=== PATIENT | female | born 1955 | race Caucasian/White ===

== ENCOUNTER → 2018-02-04 12:52 | Outpatient (CLI) | payer OTHER, SELFPAY ==
[2018-02-04 14:11] LABS: Absolute Neutrophil Count 2.2 X10^3/uL (2.0-7.7); Basophil# 0.03 X10^3/uL; Basophil% 0.7 % (0-1); Eosinophils% 2.3 % (0-5); Hematocrit 38.9 % (37-47); Hemoglobin 12.8 g/dl (12.0-15.0); Lymphocyte % 36.4 % (19-41); Mean Corp Hgb Conc 32.9 g/gl (32-36); Mean Corpuscular Hgb 31.8 pg (27.0-32.0); Mean Corpuscular Volume 96.5 fL (81-99); Mean Platelet Vol. 11.8 fl (6.2-12.0); Monocyte# 0.43 X10^3/uL; Monocyte% 9.8 % (0-10); Neutrophil # 2.22 X10^3/uL (2.7-7.7); Neutrophil % 50.6 % (47-70); Platelet Count 171 K/mm3 (150-450); RBC Distribution Width CV 11.6 % (11.6-14.6); RBC Distribution Width SD 40.3 fl (35.1-43.9); Red Blood Count 4.03 M/mm3 (4.2-5.4); White Blood Count 4.4 K/mm3 (4.4-11.0)
[2018-02-04 14:12] LABS: POSITIVE COUNT NO; POSITIVE DIFFERENTIAL NO; POSITIVE MORPHOLOGY NO
[2018-02-04 14:29] LABS: Vitamin D,25 Hydroxy 33.3 ng/mL (29.95-100.01)
[2018-02-04 14:33] LABS: ALB/GLOB Ratio 1.2 RATIO (0.9-2.4); AST(SGOT) 19 U/L (15-37); Alanine Aminotransfer ALT/SGPT 16 U/L (13-56); Albumin, Serum 3.6 g/dL (3.2-5.0); Alkaline Phosphatase 59 U/L (45-117); Anion Gap 5 (5-15); BUN 10 mg/dL (7-18); BUN/Creat Ratio 16.5 RATIO (10-20); Calcium,Total 8.7 mg/dL (8.5-10.1); Chloride 103 mmol/L (98-107); Cholesterol 168 mg/dL (200); Creatinine, Serum 0.61 mg/dL (0.55-1.02); EST Glomerular Filtration Rate 105 mL/min (>60); Est Glom Filt Rate - Afr Amer 128 mL/min (>60); Globulin 3.1 g/dL (2.2-4.2); Glucose 83 mg/dL (74-106); High Density Lipoprotein 72 mg/dL; Potassium 4.3 mmol/L (3.5-5.1); Protein, Total 6.7 g/dL (6.4-8.2); Sodium Level 137 mmol/L (136-145); Thyroid Stim Hormone (TSH) 2.31 uIU/mL (0.358-3.74); Triglycerides 110 mg/dL; Very Low Density Lipoprotein 22 mg/dL (5-40)
== END ==
PROVIDERS: Family Provider Family Medicine; PCP Family Medicine; Visit Provider Family Medicine
DX: E78.5 Hyperlipidemia, unspecified (principal); E55.9 Vitamin D deficiency, unspecified; R53.81 Other malaise
CPT/HCPCS: 80053; 80061; 82306; 84443; 85025

== ENCOUNTER → 2018-06-03 12:50 | Outpatient (CLI) | payer OTHER, SELFPAY ==
[2018-06-03] MEDS: Zoledronic Acid 5 MG 100 ML 300 MG IV (13:27)
[2018-06-03 13:44] VITALS: BP 109/66; PULSE 67; RESP 16; TEMP 36.4; O2SAT 100; BMI 18.9
== END ==
PROVIDERS: Family Provider Family Medicine; PCP Family Medicine; Visit Provider Family Medicine
DX: M81.0 Age-related osteoporosis without current pathological fracture (principal)
CPT/HCPCS: 96365; J7050; A4216; J3489

== ENCOUNTER → 2018-07-13 08:03 | Outpatient (CLI) | payer MEDICARE, SELFPAY ==
--- NOTE | 2018-07-13 08:07 | CT_ITS ---
STUDY: CT SOFT TISSUE NECK WITH CONTRAST REASON FOR EXAM: Female, 62 years old. Left neck pain with difficulty swallowing. RADIATION DOSAGE (If Supplied By Facility): CTDIvol = ( 9.48 ) mGy, DLP = ( 264.00 ) mGycm TECHNIQUE: The patient was scanned in a multi-detector CT scanner. High resolution transaxial imaging was performed following intravenous administration of 100 ml of Isovue 300 contrast material. Sagittal and coronal images were reconstructed. Individualized dose optimization techniques were used for this CT. COMPARISON: None. FINDINGS: Normal bilateral parotid glands. Normal bilateral educational guidance counselor spaces. Normal bilateral parapharyngeal spaces. Normal bilateral carotid spaces. Normal bilateral sublingual and submandibular glands and spaces. Normal visualized nasopharynx. Normal retropharyngeal space. Normal perivertebral space. Normal visualized bilateral faucial tonsils. The visualized tongue, tongue base and oropharynx are normal. The visualized cervical lymph nodes (levels I-) are within normal size limits, and maintain normal morphology. There is no demonstrated solid or cystic mass lesion. There is no abnormal contrast enhancement. Normal epiglottis, bilateral vallecula and hypopharynx. The pre-epiglottic and paraglottic adipose spaces are normal. Normal visualized bilateral piriform sinuses, aryepiglottic folds, vocal cords, and arytenoid-cricoid articulations. Normal subglottic trachea. Normal bilateral lobes of the thyroid gland. Normal visualized pulmonary apices. Normal visualized paranasal sinuses. Normal visualized cervical spine. CT/Soft Tissue Neck WITH Contrast IMPRESSION: Normal enhanced CT examination of the soft tissues of the neck. Electronically Signed: Hira Fried MD at 8:43 EDT , Service support ,
[2018-07-13 08:45] LABS: CREATININE FINGERSTICK 0.8 mg/dL (0.55-1.02)
== END ==
PROVIDERS: Family Provider Family Medicine; PCP Family Medicine; Referring Provider Otolaryngology; Visit Provider Otolaryngology
DX: M54.2 Cervicalgia (principal)
CPT/HCPCS: 70491; Q9967

== ENCOUNTER → 2019-06-14 | Outpatient (CLI) | payer MEDICARE, SELFPAY ==
--- NOTE | 2019-06-14 11:21 | BI_ITS ---
MAMMOGRAPHY - BILATERAL SCREENING REASON FOR EXAM: Female, 63 years old. Routine annual screening examination. PERTINENT HISTORY: Non-contributory. TECHNIQUE: Digital bilateral breast moise (3D mammographic acquisition) in the CC and MLO projections. 2-D mediolateral oblique (MLO) and craniocaudad (CC) views of both breasts were obtained. CAD: Full Field Digital Mammography with Computer Added Detection was performed. COMPARISON: Comparison is made with prior study dated July 10, 2017 and May 11, 2016. FINDINGS: Breast Composition: The breasts are heterogeneously dense, which may obscure small masses. There are no dominant masses or suspicious calcifications. Stable appearance of the bilateral axillary lymph nodes. No other significant abnormalities are identified. There has been no significant change since the prior study. BI/SCREEN MAMM (CAD) W/MOISE BILAT IMPRESSION: Stable bilateral screening mammogram. Yearly follow-up mammogram recommended. (A) ASSESSMENT CATEGORY: BIRADS Category 1: Negative. A letter regarding these results will be sent to the patient by the facility within 30 days. Approximately 10% of breast cancers are not detected by mammography. A normal mammogram should not delay biopsy of a clinically suspicious abnormality. [id number] Electronically Signed: Adrian Morales, at 8:56 EDT , Service support ,
--- NOTE | 2019-06-14 11:27 | BD_ITS ---
STUDY: DUAL ENERGY X-RAY ABSORPTIOMETRY / DXA REASON FOR EXAM: Female, 63 years old. Early menopause. Loss of height. TECHNIQUE: Bone Mineral Density (BMD) measurements of lumbar spine and bilateral hips were obtained. COMPARISON: Comparison is made with prior examination dated May 18, 2017. FINDINGS: Lumbar Spine (L1-L4): g/cm2 (0.836) / T-score (-2.7) / Z-score (-1.1) Findings are suggestive of osteoporosis with a high fracture risk. Increased thoracic kyphosis. Left Femur Total: g/cm2 (0.943) / T-score (-0.5) / Z-score (0.7) Left Femoral Neck: g/cm2 (0.910) / T-score (-0.9) / Z-score (0.6) Right Femur Total: g/cm2 (0.943) / T-score (-0.5) / Z-score (0.7) Right Femoral Neck: g/cm2 (0.888) / T-score (-1.1) / Z-score (0.4) The T-Scores on the most recent prior examination were: Lumbar Spine (L1-L4): There has been improvement of bone density since the previous examination. Left Femur Total: which represents an improvement of 2.7%. Right Femur Total: which represents an improvement of 2.1%. BD/Dexa Bone Density Study IMPRESSION: The patient is considered osteoporotic at the level of the lumbar spine as outlined below according to World Simba Organization (WHO) criteria with a high fracture risk. There has been improvement of bone density since the previous examination. Reference Information: The T-score is the number of standard deviations above or below the standard which is normal for young adults at their peak bone mineral density. The World Health Organization (WHO) interprets the T-scores as follows: Above -1 Normal bone density Between -1 and -2.5 Osteopenia Equal to / or below -2.5 Osteoporosis As a practical clinical guideline, osteopenia may be graded as follows: Mild -1 through -1.5 Moderate -1.6 through -2.0 Severe -2.1 through -2.4 The Z-score is the number of standard deviations above or below age-matched controls. A Z-score of less than -1.5 would be considered abnormal. References: 1. NIH Osteoporosis and Related Bone Diseases http://www.osteo.org 2. International Society for Clinical Densitometry http://www.iscd.org 3. National Osteoporosis Foundation http://www.nof.org Electronically Signed: Adrian Morales, at 13:23 EDT , Service support ,
== END | disposition home or self-care (01) ==
PROVIDERS: Family Provider Family Medicine; PCP Family Medicine; Visit Provider Family Medicine
DX: Z78.0 Asymptomatic menopausal state (principal); Z12.31 Encounter for screening mammogram for malignant neoplasm of breast
CPT/HCPCS: 77063; 77067; 77080

== ENCOUNTER → 2019-06-16 | Outpatient (CLI) | payer MEDICARE, SELFPAY ==
[2019-06-16 13:00] VITALS: BP 117/63; PULSE 66; RESP 18; TEMP 36.2; O2SAT 99; BMI 20.2
[2019-06-16] MEDS: Zoledronic Acid 5 MG 100 ML 300 MG IV (13:15)
== END | disposition home or self-care (01) ==
LOC: MEDOUTP 12:54
PROVIDERS: Family Provider Family Medicine; PCP Family Medicine; Referring Provider Family Medicine; Visit Provider Family Medicine
DX: M81.0 Age-related osteoporosis without current pathological fracture (principal)
CPT/HCPCS: 96365; A4216; J3489

== ENCOUNTER → 2019-07-26 | Outpatient (CLI) | payer MEDICARE, SELFPAY ==
[2019-06-16 13:00] VITALS: BMI 20.2
--- NOTE | 2019-07-26 12:23 | RAD_ITS ---
STUDY: X-RAY - LUMBAR SPINE REASON FOR EXAM: Female, 64 years old. Low back pain, left hip pain TECHNIQUE: 5 view(s) of the lumbar spine were obtained. COMPARISON: None FINDINGS: Normal lumbar lordosis. Mild dextroscoliosis. There is a normal alignment of the vertebrae. Normal vertebral bodies and endplates. Normal disc space heights. The soft tissue structures are unremarkable. RAD/L/S Spine Min 4 Views IMPRESSION: Mild dextroscoliosis. Electronically Signed: Cj Obando MD at 15:24 EDT Tel , Service support ,
--- NOTE | 2019-07-26 12:23 | RAD_ITS ---
STUDY: X-RAY - PELVIS AND LEFT HIP REASON FOR EXAM: Female, 64 years old. Left hip pain TECHNIQUE: views of the pelvis and hip. COMPARISON: None. FINDINGS: There is a non-specific bowel gas pattern. Normal visualized soft tissue structures. Normal bilateral iliac wings, sacroiliac joints and visualized sacrum. Normal bilateral superior and inferior pubic rami. Normal pubic symphysis. Normal bilateral ischial tuberosities. Normal visualized femoral head. Normal acetabulum. Normal hip joint. RAD/HIP, UNI W/ Pelvis 2-3 Views IMPRESSION: Normal x-ray examination of the pelvis and hip. Electronically Signed: Cj Obando MD at 15:23 EDT Tel , Service support ,
== END | disposition home or self-care (01) ==
LOC: MTRAD 12:06
PROVIDERS: Family Provider Family Medicine; PCP Family Medicine; Referring Provider Family Medicine; Visit Provider Family Medicine
DX: S39.012A Strain of muscle, fascia and tendon of lower back, initial encounter (principal)
CPT/HCPCS: 72110; 73502

== ENCOUNTER → 2019-08-18 | Outpatient (CLI) | payer MEDICARE, SELFPAY ==
[2019-06-16 13:00] VITALS: BMI 20.2
--- NOTE | 2019-08-18 14:15 | RAD_ITS ---
STUDY: X-RAY STERNUM REASON FOR EXAM: Female, 64 years old. Pain in the sternum. TECHNIQUE: 4 view(s) of the sternum were obtained. COMPARISON: None. FINDINGS: Normal bilateral sternoclavicular articulations. Normal manubrium. Normal sternomanubrial joint. Normal sternal body and xiphoid process. There is no demonstrated fracture of the sternum. Normal visualized anterior ribs. Normal visualized lungs. The soft tissue structures are unremarkable. RAD/Sternum min 2 Views IMPRESSION: Unremarkable x-ray examination of the sternum. Electronically Signed: Clarissa Rader MD at 3:11 EST , Service support ,
== END | disposition home or self-care (01) ==
LOC: MTRAD 14:13
PROVIDERS: Family Provider Family Medicine; PCP Family Medicine; Referring Provider Family Medicine; Visit Provider Family Medicine
DX: R07.89 Other chest pain (principal)
CPT/HCPCS: 71120

== ENCOUNTER → 2020-04-29 | Outpatient (CLI) | payer MEDICARE, SELFPAY ==
[2019-06-16 13:00] VITALS: BMI 20.2
[2020-04-29 17:50] LABS: Absolute Lymphocyte Count 1.53 X10^3/uL (0.83-4.51); Basophil# 0.04 X10^3/uL; Basophil% 0.8 % (0-1); Eosinophil# 0.09 X10^3/uL; Eosinophils% 1.8 % (0-5); Hematocrit 40.4 % (37-47); Hemoglobin 12.6 g/dL (12.0-15.0); Lymphocyte # 1.53 X10^3/ul (4.0); Lymphocyte % 30.5 % (19-41); Mean Corp Hgb Conc 31.2 g/dL (32-36); Mean Corpuscular Hgb 31.1 pg (27.0-32.0); Mean Corpuscular Volume 99.8 fL (81-99); Mean Platelet Vol. 12.3 fl (6.2-12.0); NRBC Flagged by Analyzer 0 % (0-5); Neutrophil # 2.95 X10^3/uL (2.7-7.7); Neutrophil % 58.7 % (47-70); Platelet Count 169 K/mm3 (150-450); RBC Distribution Width CV 12.2 % (11.6-14.6); RBC Distribution Width SD 44.8 fl (35.1-43.9); Red Blood Count 4.05 M/mm3 (4.2-5.4)
[2020-04-29 18:10] LABS: Erythrocyte Sedimentation Rate 4 mm/hr (0-30)
[2020-04-29 18:26] LABS: ALB/GLOB Ratio 1.2 RATIO (0.9-2.4); AST(SGOT) 17 U/L (15-37); Alanine Aminotransfer ALT/SGPT 15 U/L (13-56); Albumin, Serum 3.7 g/dL (3.2-5.0); Alkaline Phosphatase 57 U/L (45-117); Anion Gap 4 (5-15); BUN 10 mg/dL (7-18); BUN/Creat Ratio 16.3 RATIO (10-20); Calcium,Total 8.6 mg/dL (8.5-10.1); Chloride 105 mmol/L (98-107); Creatinine, Serum 0.61 mg/dL (0.55-1.02); EST Glomerular Filtration Rate 104 mL/min (>60); Est Glom Filt Rate - Afr Amer 125 mL/min (>60); Globulin 3.1 g/dL (2.2-4.2); Glucose 99 mg/dL (74-106); Protein, Total 6.8 g/dL (6.4-8.2); Sodium Level 136 mmol/L (136-145); Thyroid Stim Hormone (TSH) 1.85 uIU/mL (0.358-3.74)
== END | disposition home or self-care (01) ==
LOC: MFPLAB 14:37
PROVIDERS: PCP Family Medicine; Referring Provider Family Medicine; Visit Provider Family Medicine
DX: R60.0 Localized edema (principal)
CPT/HCPCS: 36415; 80053; 84443; 85025; 85652

== ENCOUNTER → 2020-05-15 | Outpatient (CLI) | payer MEDICARE, SELFPAY ==
[2019-06-16 13:00] VITALS: BMI 20.2
--- NOTE | 2020-05-15 14:51 | ECHOD_ITS ---
Reason For Study: Leg edema Procedure This was a 2D Doppler, Color Flow transthoracic echocardiogram. Exam performed in department. Left Ventricle Normal size and thickness. The estimated ejection fraction is 65 %. Stage 2 diastolic dysfunction. No regional wall motion abnormalities noted. Right Ventricle Normal size and thickness. Normal systolic function. Atria Normal left atrium. Normal right atrium. Normal atrial septum. Mitral Valve The mitral valve is structurally normal. No prolapse or stenosis seen. Trivial mitral valve insufficiency. Tricuspid Valve Normal tricuspid valve. Mild (1+) tricuspid valve insufficiency. Right ventricular systolic pressure estimated to be 30 mmHg. Aortic Valve Normal aortic valve. Trisinus/trileaflet aortic valve. Pulmonic Valve Normal pulmonic valve. Great Vessels Normal aortic root. Normal arch. Normal inferior vena cava. Inferior vena cava collapse with sniff. Pericardium/Pleural No pericardial effusion. MMode/2D Measurements & Calculations LVIDd: 3.7 cm IVSd: 0.69 cm Ao root diam: 2.5 cm LVIDs: 2.4 cm LVPWd: 1.1 cm LA dimension: 3.1 cm RVDd: 2.8 cm FS: 36.8 % LAV(MOD-bp): 35.1 ml LA A4 area: 12.0 cm2 RA A4 area: 9.2 cm2 LAV(MOD-bp) Indexed: 22.1 ml/m2 LAV(MOD-sp2): 38.6 ml LAV(MOD-sp4): 29.3 ml Time Measurements MV dec time: 0.25 sec Doppler Measurements & Calculations MV E max real: 71.8 cm/sec Lat Peak E' Real: 9.4 cm/sec Med Peak E' Real: 6.8 cm/sec MV A max real: 55.2 cm/sec E/E' lat: 7.6 E/E' med: 10.5 MV E/A: 1.3 MV V2 max: 74.4 cm/sec MV P1/2t max real: 73.9 cm/sec Ao V2 max: 119.8 cm/sec MV max P.2 mmHg MV P1/2t: 77.4 msec Ao max P.7 mmHg MV V2 mean: 46.6 cm/sec MV dec slope: 279.5 cm/sec2 MV mean P.96 mmHg MVA(P1/2t): 2.8 cm2 MV V2 VTI: 21.4 cm LV V1 max: 96.2 cm/sec PA V2 max: 73.0 cm/sec TR max real: 248.3 cm/sec LV V1 max P.7 mmHg TR max P.7 mmHg Interpretation Summary The estimated ejection fraction is 65 %. Stage 2 diastolic dysfunction. Trivial mitral valve insufficiency. Mild (1+) tricuspid valve insufficiency. Right ventricular systolic pressure estimated to be 30 mmHg. There is no comparison study available. Ordering Physician: Nata Baez Referring Physician: Nata Baez Performed By: Ana Dixon RDCS and Student
== END | disposition home or self-care (01) ==
LOC: CVS 14:50
PROVIDERS: PCP Family Medicine; Referring Provider Family Medicine; Visit Provider Family Medicine
DX: R60.0 Localized edema (principal)
CPT/HCPCS: 93306

== ENCOUNTER → 2020-06-20 | Outpatient (CLI) | payer MEDICARE, SELFPAY ==
[2019-06-16 13:00] VITALS: BMI 20.2
[2020-06-20 12:59] VITALS: BP 103/69; PULSE 60; RESP 16; TEMP 36.8; O2SAT 100
[2020-06-20] MEDS: 0.9% NaCl Peripheral Flush Adult/Peds IV (13:06)
[2020-06-20] MEDS: Zoledronic Acid 5 MG 100 ML 300 MG IV (13:14)
== END | disposition home or self-care (01) ==
LOC: MEDOUTP 12:45
PROVIDERS: PCP Family Medicine; Referring Provider Family Medicine; Visit Provider Family Medicine
DX: M81.0 Age-related osteoporosis without current pathological fracture (principal)
CPT/HCPCS: 96365; A4216; J3489

== ENCOUNTER → 2020-06-21 | Outpatient (CLI) | payer MEDICARE, SELFPAY ==
[2019-06-16 13:00] VITALS: BMI 20.2
--- NOTE | 2020-06-21 13:02 | BI_ITS ---
MAMMOGRAPHY - BILATERAL SCREENING REASON FOR EXAM: Female, 64 years old. Routine annual screening examination. PERTINENT HISTORY: Non-contributory. TECHNIQUE: Digital bilateral breast moise (3D mammographic acquisition) in the CC and MLO projections. 2-D mediolateral oblique (MLO) and craniocaudad (CC) views of both breasts were obtained. CAD: Full Field Digital Mammography with Computer Added Detection was performed. COMPARISON: Comparison is made with the prior examination dated 06/14/2019 and 07/10/2017. FINDINGS: Breast Composition: The breasts are heterogeneously dense, which may obscure small masses. There are no dominant masses or suspicious calcifications. Stable benign appearing bilateral axillary lymph nodes. No other significant abnormalities are identified. There has been no significant change since the prior study. BI/SCREEN MAMM (CAD) W/MOISE BILAT IMPRESSION: Stable bilateral screening mammogram. Yearly follow-up mammogram recommended. (A) ASSESSMENT CATEGORY: BIRADS Category 2: Benign. A letter regarding these results will be sent to the patient by the facility within 30 days. Approximately 10% of breast cancers are not detected by mammography. A normal mammogram should not delay biopsy of a clinically suspicious abnormality. [id number] Electronically Signed: Adrian Morales, at 13:38 EDT , Service support ,
== END | disposition home or self-care (01) ==
PROVIDERS: PCP Family Medicine
DX: Z12.31 Encounter for screening mammogram for malignant neoplasm of breast (principal)
CPT/HCPCS: 77063; 77067

== ENCOUNTER → 2021-03-26 12:02 | Outpatient (CLI) | payer MEDICARE, SELFPAY ==
[2021-03-26 15:25] LABS: Vitamin D,25 Hydroxy 27.4 ng/mL
[2021-03-26 15:29] LABS: Calcium,Total 8.8 mg/dL (8.5-10.1); Cholesterol 179 mg/dL (200); High Density Lipoprotein 85 mg/dL; Thyroid Stim Hormone (TSH) 1.59 uIU/mL (0.358-3.74); Triglycerides 97 mg/dL; Very Low Density Lipoprotein 19 mg/dL (5-40)
== END ==
PROVIDERS: PCP Family Medicine; Referring Provider Family Medicine; Visit Provider Family Medicine
DX: M81.0 Age-related osteoporosis without current pathological fracture (principal); E78.5 Hyperlipidemia, unspecified
CPT/HCPCS: 36415; 80061; 82306; 82310; 84443

== ENCOUNTER → 2021-06-24 13:22 | Outpatient (CLI) | payer MEDICARE, SELFPAY ==
--- NOTE | 2021-06-24 13:26 | BI_ITS ---
MAMMOGRAPHY - BILATERAL SCREENING REASON FOR EXAM: Female, 65 years old. Routine annual screening examination. PERTINENT HISTORY: Non-contributory. TECHNIQUE: Digital bilateral breast kei (3D mammographic acquisition) in the CC and MLO projections. 2-D mediolateral oblique (MLO) and craniocaudad (CC) views of both breasts were obtained. CAD: Full Field Digital Mammography with Computer Added Detection was performed. COMPARISON: Comparison is made with prior study dated 06/21/2020 and 06/14/2019. FINDINGS: Breast Composition: The breasts are heterogeneously dense, which may obscure small masses. There are no dominant masses or suspicious calcifications. No other significant abnormalities are identified. There has been no significant change since the prior study. BI/SCREENING MAMM (CAD), BILAT IMPRESSION: Stable bilateral screening mammogram. Yearly follow-up mammogram recommended. (A) ASSESSMENT CATEGORY: BIRADS Category 1: Negative. A letter regarding these results will be sent to the patient by the facility within 30 days. Approximately 10% of breast cancers are not detected by mammography. A normal mammogram should not delay biopsy of a clinically suspicious abnormality. [id number] Electronically Signed: Adrian Morales MD at 14:43 EDT , Service support ,
--- NOTE | 2021-06-24 13:35 | BD_ITS ---
STUDY: DUAL ENERGY X-RAY ABSORPTIOMETRY / DXA REASON FOR EXAM: Female, 65 years old. 733.00OsteoporosisBONE DENSITY REASON FOR EXAM TECHNIQUE: Bone Mineral Density (BMD) measurements of lumbar spine and bilateral hips were obtained. COMPARISON: Comparison is made with prior study dated 06/14/2019. FINDINGS: Lumbar Spine (L1-L4): g/cm2 (0.829) / T-score (-2.0) / Z-score (0.0) Findings are suggestive of osteopenia with a moderate fracture risk. Left Femur Total: g/cm2 (0.832) / T-score (-0.9) / Z-score (0.5) Left Femoral Neck: g/cm2 (0.716) / T-score (-1.2) / Z-score (0.5) Right Femur Total: g/cm2 (0.850) / T-score (-0.8) / Z-score (0.6) Right Femoral Neck: g/cm2 (0.730) / T-score (-1.1) / Z-score (0.6) The T-Scores on the most recent prior examination were: Lumbar Spine (L1-L4): There has been improvement of bone density since the previous examination. Left Femur Total: which represents a worsening of 5.3%. Right Femur Total: which represents a worsening of 3.2%. BD/Dexa Bone Density Study IMPRESSION: The patient is considered osteopenic as outlined below according to World [employer] Organization (WHO) criteria with a moderate fracture risk. There has been worsening of bone density since the previous examination. Reference Information: The T-score is the number of standard deviations above or below the standard which is normal for young adults at their peak bone mineral density. The World Health Organization (WHO) interprets the T-scores as follows: Above -1 Normal bone density Between -1 and -2.5 Osteopenia Equal to / or below -2.5 Osteoporosis As a practical clinical guideline, osteopenia may be graded as follows: Mild -1 through -1.5 Moderate -1.6 through -2.0 Severe -2.1 through -2.4 The Z-score is the number of standard deviations above or below age-matched controls. A Z-score of less than -1.5 would be considered abnormal. References: 1. NIH Osteoporosis and Related Bone Diseases www osteo.org 2. International Society for Clinical Densitometry www iscd.org 3. National Osteoporosis Foundation www nof.org Electronically Signed: Adrian Morales MD at 14:48 EDT , Service support ,
== END ==
PROVIDERS: PCP Family Medicine; Referring Provider Family Medicine; Visit Provider Family Medicine
DX: Z12.31 Encounter for screening mammogram for malignant neoplasm of breast (principal); Z00.00 Encounter for general adult medical examination without abnormal findings; M81.0 Age-related osteoporosis without current pathological fracture
CPT/HCPCS: 77067; 77080

== ENCOUNTER → 2021-07-10 10:48 | Outpatient (CLI) | payer MEDICARE, SELFPAY ==
[2021-07-10 11:15] VITALS: BP 104/69; PULSE 69; RESP 16; TEMP 35.8; O2SAT 98; BMI 19.3
[2021-07-10] MEDS: 0.9% NaCl IVPB Med Flush (250 mL) 15 ML IV (11:27)
[2021-07-10] MEDS: Zoledronic Acid 5 MG 100 ML 300 MG IV (11:27)
[2021-07-10] MEDS: 0.9% NaCl Peripheral Flush Adult/Peds IV (11:27)
== END ==
PROVIDERS: PCP Family Medicine; Referring Provider Family Medicine; Visit Provider Family Medicine
DX: M81.0 Age-related osteoporosis without current pathological fracture (principal)
CPT/HCPCS: 96374; J7050; A4216; J3489

== ENCOUNTER → 2021-08-25 12:25 | Outpatient (CLI) | payer MEDICARE, SELFPAY ==
[2021-08-25 15:18] LABS: Absolute Lymphocyte Count 1.24 X10^3/uL (0.83-4.51); Absolute Neutrophil Count 2.9 X10^3/uL (2.0-7.7); Basophil# 0.03 X10^3/uL; Basophil% 0.6 % (0-1); Eosinophil# 0.16 X10^3/uL; Eosinophils% 3.4 % (0-5); Hematocrit 39.8 % (37-47); Hemoglobin 12.8 g/dL (12.0-15.0); Lymphocyte # 1.24 X10^3/ul (0.83-4.51); Mean Corp Hgb Conc 32.2 g/dL (32-36); Mean Corpuscular Hgb 30.8 pg (27.0-32.0); Mean Corpuscular Volume 95.9 fL (81-99); Mean Platelet Vol. 12.1 fl (6.2-12.0); Monocyte# 0.38 X10^3/uL; NRBC Flagged by Analyzer 0 % (0-5); Neutrophil # 2.94 X10^3/uL (2.7-7.7); Neutrophil % 61.6 % (47-70); Platelet Count 185 K/mm3 (150-450); RBC Distribution Width CV 11.8 % (11.6-14.6); RBC Distribution Width SD 41.1 fl (35.1-43.9); Red Blood Count 4.15 M/mm3 (4.2-5.4); White Blood Count 4.8 K/mm3 (4.4-11.0)
[2021-08-25 15:43] LABS: Erythrocyte Sedimentation Rate 4 mm/hr (0-30)
== END ==
PROVIDERS: PCP Family Medicine; Referring Provider Family Medicine; Visit Provider Family Medicine
DX: L95.9 Vasculitis limited to the skin, unspecified (principal)
CPT/HCPCS: 36415; 85025; 85652; 86140

== ENCOUNTER → 2022-01-30 | Outpatient (CLI) | payer MEDICARE, SELFPAY ==
--- NOTE | 2022-01-30 14:00 | RAD_ITS ---
EXAM: XR STERNUM, 2 OR MORE VIEWS CLINICAL INDICATION: STERNUM PAIN TECHNIQUE: Lateral and oblique views of the sternum. This report was created using [employer] report generation technology. COMPARISON: August 18, 2019. FINDINGS: BONES/JOINTS: No sternal fracture or destruction is evident. SOFT TISSUES: Unremarkable. No soft tissue swelling or gas. No radiopaque foreign body. RAD/Sternum min 2 Views IMPRESSION: No acute findings in the sternum. Electronically Signed: Carina Turpin MD at 7:07 EDT ,
== END | disposition home or self-care (01) ==
LOC: MTRAD 13:58
PROVIDERS: PCP Family Medicine; Referring Provider Family Medicine; Visit Provider Family Medicine
DX: R07.89 Other chest pain (principal)
CPT/HCPCS: 71120

== ENCOUNTER → 2022-06-25 | Outpatient (CLI) | payer MEDICARE, SELFPAY ==
--- NOTE | 2022-06-25 13:18 | BI_ITS ---
MAMMOGRAPHY - BILATERAL SCREENING 3-D TOMOSYNTHESIS REASON FOR EXAM: Female, 66 years old. SCREENING PERTINENT HISTORY: No significant family history. TECHNIQUE: 2-D mammograms and 3-D Tomosynthesis of the breast (s) were performed. CAD was performed. COMPARISON: 06/24/2021 FINDINGS: The breast composition is heterogeneously dense that can obscure small breast masses. Scattered benign calcifications are seen. No dense spiculated masses or suspicious microcalcifications are identified. No architectural distortion is identified. There is no skin thickening or retraction. There has been no significant change since the prior study. BI/SCRN MAMM (CAD)W/MOISE BILAT IMPRESSION: No mammographic signs of malignancy. Routine yearly mammograms recommended. ASSESSMENT CATEGORY: BIRADS Category 1: Negative. A letter regarding these results will be sent to the patient by the facility within 30 days. FOLLOW UP RECOMMENDATION: Yearly follow up mammogram recommended. (A) Approximately 10% of breast cancers are not detected by mammography. A normal mammogram should not delay biopsy of a clinically suspicious abnormality. Electronically Signed: Cj Obando MD at 14:41 EDT ,
== END | disposition home or self-care (01) ==
LOC: OPBI 13:17
PROVIDERS: PCP Family Medicine; Visit Provider Family Medicine
DX: Z12.31 Encounter for screening mammogram for malignant neoplasm of breast (principal)
CPT/HCPCS: 77063; 77067

== ENCOUNTER → 2022-07-15 | Outpatient (CLI) | payer MEDICARE, SELFPAY ==
--- NOTE | 2022-07-15 13:59 | RAD_ITS ---
STUDY: X-RAY - LEFT FOOT CLINICAL: Female, 66 years old. PAIN TECHNIQUE: 3 view(s) of the foot. COMPARISON: None. FINDINGS: There is a plantar calcaneal spur. Normal visualized subtalar, talonavicular, calcaneocuboid, tarsal and tarsometatarsal articulations. Normal metatarsi. There is degenerative arthrosis of the metatarsophalangeal joint of the hallux . Normal tibial and fibular sesamoid bones. Normal interphalangeal joint of the great toe. Normal phalanges of the great toe. Normal second through fifth metatarsophalangeal joints. Normal interphalangeal joints and phalanges of the lesser toes. The soft tissue structures are unremarkable. RAD/Foot min 3 Views IMPRESSION: There is a plantar calcaneal spur. There is degenerative arthrosis of the metatarsophalangeal joint of the hallux . Electronically Signed: Ashwin Hinds MD at 14:30 EDT ,
== END | disposition home or self-care (01) ==
LOC: MTRAD 13:57
PROVIDERS: PCP Family Medicine; Referring Provider Family Medicine; Visit Provider Family Medicine
DX: M79.672 Pain in left foot (principal)
CPT/HCPCS: 73630

== ENCOUNTER → 2022-07-17 | Outpatient (CLI) | payer MEDICARE, SELFPAY ==
[2022-07-17 12:57] VITALS: BP 121/71; PULSE 67; RESP 16; TEMP 35.5
[2022-07-17] MEDS: 0.9% NaCl Peripheral Flush Adult/Peds IV (13:02)
[2022-07-17] MEDS: Zoledronic Acid 5 MG 100 ML 300 MG IV (13:10)
== END | disposition home or self-care (01) ==
LOC: MEDOUTP 12:41
PROVIDERS: PCP Family Medicine; Referring Provider Family Medicine; Visit Provider Family Medicine
DX: M81.0 Age-related osteoporosis without current pathological fracture (principal)
CPT/HCPCS: 96365; A4216; J3489

== ENCOUNTER → 2023-02-16 | Outpatient (CLI) | payer MEDICARE, SELFPAY | END | disposition home or self-care (01) | LOC: LABSPEC 15:18 | PROVIDERS: PCP Family Medicine; Referring Provider Family Medicine; Visit Provider Family Medicine | DX: N39.0 Urinary tract infection, site not specified (principal) | CPT/HCPCS: 87077; 87086; 87088; 87186 ==

== ENCOUNTER → 2023-02-22 | Outpatient (CLI) | payer MEDICARE, SELFPAY | END | disposition home or self-care (01) | PROVIDERS: PCP Family Medicine; Visit Provider Family Medicine | DX: N39.0 Urinary tract infection, site not specified (principal) | CPT/HCPCS: 87086; 87088 ==

== ENCOUNTER → 2023-06-29 | Outpatient (CLI) | payer MEDICARE, SELFPAY ==
--- NOTE | 2023-06-29 12:53 | BI_ITS ---
MAMMOGRAPHY - BILATERAL SCREENING REASON FOR EXAM: Female, 67 years old. Routine annual screening examination. PERTINENT HISTORY: Non-contributory. TECHNIQUE: Digital bilateral breast moise (3D mammographic acquisition) in the CC and MLO projections. 2-D mediolateral oblique (MLO) and craniocaudad (CC) views of both breasts were obtained. CAD: Full Field Digital Mammography with Computer Added Detection was performed. COMPARISON: Comparison is made with prior study June 25, 2022 and June 24, 2021. FINDINGS: Breast Composition: The breasts are heterogeneously dense, which may obscure small masses. There are no dominant masses or suspicious calcifications. No other significant abnormalities are identified. There has been no significant change since the prior study. BI/SCRN MAMM (CAD)W/MOISE BILAT IMPRESSION: Stable bilateral screening mammogram. Yearly follow-up mammogram recommended. (A) ASSESSMENT CATEGORY: BIRADS Category 1: Negative. A letter regarding these results will be sent to the patient by the facility within 30 days. Approximately 10% of breast cancers are not detected by mammography. A normal mammogram should not delay biopsy of a clinically suspicious abnormality. [id number] Electronically Signed: Adrian Morales MD at 13:56 EDT ,
--- NOTE | 2023-06-29 12:55 | BD_ITS ---
STUDY: DUAL ENERGY X-RAY ABSORPTIOMETRY / DXA REASON FOR EXAM: Female, 67 years old. M810 TECHNIQUE: Bone Mineral Density (BMD) measurements of lumbar spine and bilateral hips were obtained. COMPARISON: Comparison is made with prior study June 24, 2021. FINDINGS: Lumbar Spine (L1-L4): g/cm2 (0.844) / T-score (-1.9) / Z-score (0.2) Findings are suggestive of osteopenia with a moderate fracture risk. Left Femur Total: g/cm2 (0.857) / T-score (-0.7) / Z-score (0.8) Left Femoral Neck: g/cm2 (0.680) / T-score (-1.5) / Z-score (0.3) Right Femur Total: g/cm2 (0.849) / T-score (-0.8) / Z-score (0.7) Right Femoral Neck: g/cm2 (0.694) / T-score (-1.4) / Z-score (0.4) The T-Scores on the most recent prior examination were: Lumbar Spine (L1-L4): There has been improvement of bone density since the previous examination. Left Femur Total: which represents an improvement of 3%. Right Femur Total: which represents a worsening of 0.2%. BD/Dexa Bone Density Study IMPRESSION: The patient is considered osteopenic as outlined below according to World Sim[employer] Organization (WHO) criteria with a low fracture risk. There has been improvement of bone density since the previous examination. Reference Information: The T-score is the number of standard deviations above or below the standard which is normal for young adults at their peak bone mineral density. The World Health Organization (WHO) interprets the T-scores as follows: Above -1 Normal bone density Between -1 and -2.5 Osteopenia Equal to / or below -2.5 Osteoporosis As a practical clinical guideline, osteopenia may be graded as follows: Mild -1 through -1.5 Moderate -1.6 through -2.0 Severe -2.1 through -2.4 The Z-score is the number of standard deviations above or below age-matched controls. A Z-score of less than -1.5 would be considered abnormal. References: 1. NIH Osteoporosis and Related Bone Diseases www osteo.org 2. International Society for Clinical Densitometry www iscd.org 3. National Osteoporosis Foundation www nof.org Electronically Signed: Adrian Morales MD at 14:59 EDT ,
== END | disposition home or self-care (01) ==
PROVIDERS: PCP Family Medicine; Referring Provider Family Medicine; Visit Provider Nurse Practitioner Family
DX: Z12.31 Encounter for screening mammogram for malignant neoplasm of breast (principal); M81.0 Age-related osteoporosis without current pathological fracture
CPT/HCPCS: 77063; 77067; 77080

== ENCOUNTER 2023-08-06 13:26 | Outpatient (CLI) | payer MEDICARE, SELFPAY ==
[2023-08-06 13:35] VITALS: BP 122/59; PULSE 66; RESP 12; TEMP 35.6; O2SAT 100; BMI 19.3
[2023-08-06] MEDS: Zoledronic Acid 5 MG 100 ML 300 MG IV (13:42)
[2023-08-06] MEDS: 0.9% NaCl Peripheral Flush Adult/Peds IV (13:42)
[2023-08-06 14:11] VITALS: BP 137/53; PULSE 60; RESP 16; TEMP 36.1; O2SAT 100
== END 2023-08-06 13:27 | disposition home or self-care (01) ==
LOC: MEDOUTP 13:26
PROVIDERS: PCP Family Medicine; Referring Provider Family Medicine; Visit Provider Family Medicine
DX: M81.0 Age-related osteoporosis without current pathological fracture (principal)
CPT/HCPCS: 96365; A4216; J3489

== ENCOUNTER → 2024-06-30 | Outpatient (CLI) | payer MEDICARE, SELFPAY ==
--- NOTE | 2024-06-30 13:02 | BI_ITS ---
MAMMOGRAPHY - BILATERAL SCREENING REASON FOR EXAM: Female, 68 years old. Routine annual screening examination. PERTINENT HISTORY: Non-contributory. TECHNIQUE: Digital bilateral breast moise (3D mammographic acquisition) in the CC and MLO projections. 2-D mediolateral oblique (MLO) and craniocaudad (CC) views of both breasts were obtained. CAD: Full Field Digital Mammography with Computer Added Detection was performed. COMPARISON: Comparison is made with prior study dated June 29, 2023 and June 25, 2022. FINDINGS: Breast Composition: The breasts are heterogeneously dense, which may obscure small masses. There are no dominant masses or suspicious calcifications. No other significant abnormalities are identified. There has been no significant change since the prior study. BI/SCRN MAMM (CAD)W/MOISE BILAT IMPRESSION: Stable bilateral screening mammogram. Yearly follow-up mammogram recommended. (A) ASSESSMENT CATEGORY: BIRADS Category 1: Negative. A letter regarding these results will be sent to the patient by the facility within 30 days. Approximately 10% of breast cancers are not detected by mammography. A normal mammogram should not delay biopsy of a clinically suspicious abnormality. [id number] Electronically Signed: Adrian Morales MD at 13:57 EDT ,
== END | disposition home or self-care (01) ==
LOC: OPBI 13:01
PROVIDERS: PCP Family Medicine; Referring Provider Family Medicine; Visit Provider Family Medicine
DX: Z12.31 Encounter for screening mammogram for malignant neoplasm of breast (principal)
CPT/HCPCS: 77063; 77067

== ENCOUNTER 2024-08-10 13:13 | Outpatient (CLI) | payer MEDICARE, SELFPAY ==
[2024-08-10 13:25] VITALS: BP 129/78; PULSE 67; RESP 16; TEMP 36.2; O2SAT 100; BMI 19.1
[2024-08-10] MEDS: Zoledronic Acid 5 MG 5 MG in Premixed Bag 1 BAG 300 MG IV (13:59)
[2024-08-10 14:27] VITALS: BP 144/73; PULSE 63; RESP 16; TEMP 36.2; O2SAT 100
== END 2024-08-10 23:59 | disposition home or self-care (01) ==
LOC: MEDOUTP 13:13
PROVIDERS: PCP Family Medicine; Referring Provider Family Medicine; Visit Provider Family Medicine
DX: M81.0 Age-related osteoporosis without current pathological fracture (principal)
CPT/HCPCS: 96365; A4216; J3489

== ENCOUNTER → 2024-09-14 | Outpatient (CLI) | payer MEDICARE, SELFPAY ==
[2024-09-20 22:07] LABS: Alternaria tenuis <0.10 kU/L (Class 0); Ash, White <0.10 kU/L (Class 0); Aspergillus fumigatus <0.10 kU/L (Class 0); Bermuda Grass <0.10 kU/L (Class 0); Birch <0.10 kU/L (Class 0); Black Walnut <0.10 kU/L (Class 0); Cat Hair / Dander,Stand <0.10 kU/L (Class 0); Cedar, Mountain <0.10 kU/L (Class 0); Cladosporium herbarum <0.10 kU/L (Class 0); Clam <0.10 kU/L (Class 0); Cockroach, American <0.10 kU/L (Class 0); Codfish <0.10 kU/L (Class 0); Corn <0.10 kU/L (Class 0); Cottonwood <0.10 kU/L (Class 0); D farinae Mite <0.10 kU/L (Class 0); D pteronyssinus <0.10 kU/L (Class 0); Dog Epithelia <0.10 kU/L (Class 0); Egg, White <0.10 kU/L (Class 0); Elm, American White <0.10 kU/L (Class 0); Immunoglobulin E 27 IU/mL (6-495); Maple/Box Elder <0.10 kU/L (Class 0); Milk (Cow) <0.10 kU/L (Class 0); Mouse Urine <0.10 kU/L (Class 0); Mulberry, White <0.10 kU/L (Class 0); Oak, White <0.10 kU/L (Class 0); Peanut <0.10 kU/L (Class 0); Pecan <0.10 kU/L (Class 0); Penicillium Notatum <0.10 kU/L (Class 0); Pigweed, Rough <0.10 kU/L (Class 0); Ragweed, Short/Common <0.10 kU/L (Class 0); Russian Thistle <0.10 kU/L (Class 0); SCALLOP <0.10 kU/L (Class 0); SESAME SEED <0.10 kU/L (Class 0); Sheep Sorrel <0.10 kU/L (Class 0); Shrimp <0.10 kU/L (Class 0); Soybean <0.10 kU/L (Class 0); Sycamore, American <0.10 kU/L (Class 0); Timothy Grass <0.10 kU/L (Class 0); Walnut, (Food) <0.10 kU/L (Class 0); Wheat <0.10 kU/L (Class 0)
== END | disposition home or self-care (01) ==
LOC: LAB 14:52
PROVIDERS: PCP Family Medicine; Referring Provider Otolaryngology; Visit Provider Otolaryngology
DX: T78.40XA Allergy, unspecified, initial encounter (principal); X58.XXXA Exposure to other specified factors, initial encounter
CPT/HCPCS: 36415; 82785; 86003

== ENCOUNTER → 2025-02-01 | Outpatient (CLI) | payer MEDICARE, SELFPAY ==
[2025-02-07 23:07] LABS: Alternaria tenuis <0.10 kU/L (Class 0); Ash, White <0.10 kU/L (Class 0); Aspergillus fumigatus <0.10 kU/L (Class 0); Bermuda Grass <0.10 kU/L (Class 0); Birch <0.10 kU/L (Class 0); Black Walnut <0.10 kU/L (Class 0); Cat Hair / Dander,Stand <0.10 kU/L (Class 0); Cedar, Mountain <0.10 kU/L (Class 0); Cladosporium herbarum <0.10 kU/L (Class 0); Cockroach, American <0.10 kU/L (Class 0); Cottonwood <0.10 kU/L (Class 0); D farinae Mite <0.10 kU/L (Class 0); D pteronyssinus <0.10 kU/L (Class 0); Dog Epithelia <0.10 kU/L (Class 0); Elm, American White <0.10 kU/L (Class 0); Immunoglobulin E 18 IU/mL (6-495); Maple/Box Elder <0.10 kU/L (Class 0); Mouse Urine <0.10 kU/L (Class 0); Mulberry, White <0.10 kU/L (Class 0); Oak, White <0.10 kU/L (Class 0); Pecan <0.10 kU/L (Class 0); Penicillium Notatum <0.10 kU/L (Class 0); Pigweed, Rough <0.10 kU/L (Class 0); Ragweed, Short/Common <0.10 kU/L (Class 0); Russian Thistle <0.10 kU/L (Class 0); Sheep Sorrel <0.10 kU/L (Class 0); Sycamore, American <0.10 kU/L (Class 0); Timothy Grass <0.10 kU/L (Class 0)
== END | disposition home or self-care (01) ==
LOC: MTLAB 15:31
PROVIDERS: PCP Family Medicine; Referring Provider Internal Medicine Pulmonary Disease; Visit Provider Internal Medicine Pulmonary Disease
DX: R05.9 Cough, unspecified (principal)
CPT/HCPCS: 36415; 82785; 86003

== ENCOUNTER → 2025-06-05 | Outpatient (CLI) | payer MEDICARE, SELFPAY ==
[2025-06-05 15:54] LABS: Anion Gap 10 (5-15); BUN 10 mg/dL (4-19); BUN/Creat Ratio 15.8 RATIO (10-20); Calcium,Total 9.2 mg/dL (7.6-11.0); Carbon Dioxide 23.6 mmol/L (21.0-32.0); Chloride 100 mmol/L (98-108); Cholesterol 181 mg/dL (<=200); Glucose 85 mg/dL (70-99); Low Density Lipoprotein Calc. 63 mg/dL; Potassium 4.2 mmol/L (3.3-5.1); Triglycerides 143 mg/dL; Very Low Density Lipoprotein 29 mg/dL (5-40); cholesterol:hdl ratio screen 2.02
== END | disposition home or self-care (01) ==
LOC: MTLAB 11:35
PROVIDERS: PCP Family Medicine; Referring Provider Family Medicine; Visit Provider Family Medicine
DX: E78.5 Hyperlipidemia, unspecified (principal)
CPT/HCPCS: 36415; 80048; 80061

== ENCOUNTER → 2025-07-03 | Outpatient (CLI) | payer MEDICARE, SELFPAY ==
--- OUTSIDE RECORDS SUMMARY | 2025-06-21 10:52 | XMS RPT_ITS ---
Author Name Auto Generated Organization OH[facility] Care Team Providers Care Blasting Entry Specialist Name Role Phone GILL NEGRON Attending Unavailable JESUS NOBLE Primary Care Unavailable PROBLEMS DATE TYPE CONDITION / CODE ATTENDING STATUS [facility] 06/21/2025 Active Encounter for gynecological examination (general) (routine) without abnormal findings / Z01.419(ICD-10) GILL NEGRON Active [facility] PROCEDURES No Procedure Records Found RESULTS CNOV Observed: 06/21/2025 11:30 AM Status: COMPLETED Source: [facility] Office Visit (OBGYWM) FATOUMATA DE LA CRUZ ([id number]) 1955 F Date Time Provider Department 06/21/25 11:30 AM GILL NEGRON OBGYWM During your visit today, we recorded the following information about you: Blood pressure Weight Height 116/64 55.1 kg 1.64 m Gill Negron APRN.CNP 06/21/2025 12:07 PM Signed Patient declined superintendent. Fatoumata is a 69 year old who presents for an annual gynecologic exam without complaints. Postmenopausal: Yes since age 11/30/1994 S/p MIL, BSO for endometriosis, fibroids age 39. HRT use: Yes, Premarin has been on it since hysterectomy. She reports she attempted to taper off the medication about 15 years ago and noticed mood changes Last pap smear: normal History of abnormal pap: No Last mammogram: 2023 , Pt reported as normal Dr. Rl Nance PCP will handle mammogram orders History of abnormal mammogram: Yes age 48's OB History Gravida0 Para0 Term0 Preterm0 AB0 Living0 SAB0 IAB0 Ectopic0 Multiple0 Live Births0 Sales Representative Health Insurance History LMP: Hysterectomy Age at Menarche: Age at First : Age at Menopause: Sales Representative Health Insurance History Comments: Sexual Activity: Not Currently; Male Contraception: Surgical PAST MEDICAL HISTORY Diagnosis Date Asthma (HCC) Cataracts, bilateral Foot fracture, left 2nd metatarsal GERD (gastroesophageal reflux disease) Hallux rigidus of left foot Osteoarthritis Osteoporosis Other and unspecified hyperlipidemia Rheumatoid arthritis(714.0) Sleep apnea PAST SURGICAL HISTORY Procedure Laterality Date COLONOSCOPY SCREENING 2017 EGD W/O BRSH SPEC VARICIES INJ 2020 NOSE SURGERY HX 03/09/2024 Basal cell carcinoma PAST SURGICAL HISTORY OF 04/03/1961 Left forearm PAST SURGICAL HISTORY OF 02/02/1996 Left elbow PAST SURGICAL HISTORY OF 2018 mos procedure upper lip PAST SURGICAL HISTORY OF upper teeth extractions POST-CATARACT LASER SURGERY Bilateral TOTAL ABDOMINAL HYSTERECT W/WO RMVL TUBE OVARY 09/02/1994 Hysterectomy, MIL FAMILY HISTORY Problem Relation Age of Onset Cancer Mother Lung Stroke Mother Due to Sick Sinus Syndrome Emphysema Mother Arthritis Father other (Liver Cirrhosis [Other]) Father Hypertension Sister COPD Sister Stroke Brother Arthritis Maternal Grandmother Asthma Maternal Grandfather No Known Problems Paternal Grandmother Pancreatic Cancer Paternal Grandfather SOCIAL HISTORY Social History Tobacco Use Smoking status: Former Current packs/day: 0.00 Types: Cigarettes Start date: 10/04/1970 Quit date: 10/04/1982 Years since quittin.7 Passive exposure: Never Smokeless tobacco: Never Tobacco comments: Pt smoked one pack every 6 months Vaping Use Vaping status: Never Used Substance Use Topics Alcohol use: Not Currently Drug use: Never REVIEW OF SYSTEMS Abdomen: No abdominal pain, nausea, vomiting, diarrhea, or constipation. No bloating, early satiety, indigestion, or increased flatulence. Bladder: No dysuria, gross hematuria, urinary frequency, urinary urgency, +slight incontinence Breast: nipples irritation and redness Allergies and current medication updated:Yes SENSITIVE EXAM: The sensitive examination was discussed with the Patient or Patient's Authorized Clerical Supervisor. As applicable, any other physician, advance practice provider, medical student, or other health professional student that will be observing or involved in the sensitive examination for educational or training purposes was discussed with the Patient or Authorized Clerical Supervisor. The Patient or Authorized Clerical Supervisor has agreed to proceed with the sensitive examination. (Sensitive examination includes inspection and/or palpation of the breasts, pelvis, prostate and anorectal regions). EXAM: BP 116/64 Ht 5' 4.567 (1.64m) Wt 121 lb 6.4 oz (55.1kg) BMI 20.47 kg/(m2). GENERAL: pleasant, female in no apparent distress HEENT: Normocephalic, atraumatic, mucus membranes moist, and no lesions DERMATOLOGY: Normal, without lesions, non-icteric, and non-hirsute BREAST: soft, non-tender, symmetric, no dominant mass, normal nipple-areolar complex, no lymphadenopathy, and no nipple discharge CHEST: Normal inspiratory effort ABDOMEN: soft, non-tender, and no masses PELVIC: external genitalia normal, normal Bartholin's glands, urethra, [place]'s glands, no vulvar lesions, physiologic discharge present, normal appearing perineal body and perianal region, cervix surgically absent BIMANUAL: no adnexal masses, non-tender, and uterus surgically absent RECTOVAGINAL: deferred. NEURO: alert and oriented x3,exam grossly non-focal EXTREMITIES: normal ASSESSMENT/PLAN: 1) Health maintenance: Pap/HPV screening no longer needed Mammogram up to date Nutrition, exercise and routine health maintenance exams reviewed. Calcium/Vitamin D supplementation information provided. Colon cancer screening: up to date with screening BMD: followed by PCP 2) Follow up one year or sooner as needed Recommended coconut oil/moisturizer for nipple irritation and change body soap. Gill Negron, BUSINESS INTELLIGENCE ARCHITECT.VP CLINICAL RESEARCH Allergies As of Date: 06/21/2025 Noted Allergy Reaction ALENDRONATE 06/17/2022 4 - Hives DOXYCYCLINE 06/17/2022 11 - Vomiting ESTRADIOL 06/17/2022 2 - Rash LEVOFLOXACIN 05/29/2016 2 - Rash 14 - Other: See Comments MACROBID (NITROFURANTOIN MONOHYD/*06/18/2023 14 - Other: See Comments Comments: Chills,fever,swelling of hands, face MOBIC (MELOXICAM) 04/01/2011 8 - GI Upset PYRIDIUM (PHENAZOPYRIDINE) 06/18/2023 14 - Other: See Comments Comments: Chills,fever, swelling of face and hands SULFA (SULFONAMIDE ANTIBIOTICS) 04/01/2011 4 - Hives VALIUM (DIAZEPAM) 04/01/2011 4 - Hives Date Reviewed: 06/21/2025 Reviewed by: Gill Negron APRN.VP CLINICAL RESEARCH - Fully Assessed Reason for Visit: Well Woman [[id number]] Primary Visit Diagnosis:Encounter for gynecological examination (general) (routine) without abnormal findings [Z01.419] Order(s):estrogens conjugated (PREMARIN) 0.625 mg tabletTake 1 tablet by mouth once daily.Disp: 90 tabletRfl: 3 Prescriptions as of 06/21/2025 - estrogens conjugated (PREMARIN) 0.625 mg tablet Take 1 tablet by mouth once daily. - loratadine 10 mg cap Take by mouth. - ARNUITY ELLIPTA 100 mcg/actuation inhaler - albuterol HFA (PROVENTIL HFA, VENTOLIN HFA) 90 mcg/actuation inhaler Inhale as instructed. - aspirin 81 mg cap Take 325 mg by mouth once daily. - CALCIUM CARBONATE/VITAMIN D3 (CALCIUM 500 + D ORAL) Take 1 tablet by mouth once daily. 650 mg - cholecalciferol (VITAMIN D3) 1,000 unit tab tablet Take 2,000 Units by mouth once daily. Problem List As Of Date 06/21/2025 Noted Resolved Thrombocytopenia [D69.6] 04/03/2011 History of osteoarthritis [Z87.39] 06/18/2023 Diagnosed: 06/18/2023 History of osteoporosis [Z87.39] 06/18/2023 Diagnosed: 06/18/2023 History of rheumatoid arthritis [Z87.39] 06/18/2023 Diagnosed: 06/18/2023 Prescriptions ordered this encounter Disp Refills Start End CONJUGATED ESTROGENS 0.625 MG TABLET 90 t* 3 06/21/2025 Route: PO Sig: Take 1 tablet by mouth once daily. Medications Discontinued During This Encounter Prescriptions - estrogens conjugated (PREMARIN) 0.625 mg tablet (Discontinued) Take 1 tablet by mouth once daily. Disposition: Return in 1 year (on 06/21/2026) for Annual Exam. Follow-up and Disposition History for Encounter Date Provider Department Center 06/21/2025 [id number], [facility] Encounter Status:Closed by GILL NEGRON on 06/21/25 PROGRESS Observed: 06/21/2025 11:17 AM Status: COMPLETED Source: [facility] ID: [id number] Author: GILL NEGRON APRN.VP CLINICAL RESEARCH Service: ? Author Type: Nurse Practitioner Type: Progress Notes Filed: 06/21/2025 12:07 Note Text: Patient declined superintendentHeath Ham is a 69 year old who presents for an annual gynecologic exam without complaints. Postmenopausal: Yes since age 11/30/1994 S/p MIL, BSO for endometriosis, fibroids age 39. HRT use: Yes, Premarin has been on it since hysterectomy. She reports she attempted to taper off the medication about 15 years ago and noticed mood changes Last pap smear: normal History of abnormal pap: No Last mammogram: 2023 , Pt reported as normal Dr. Rl Nance PCP will handle mammogram orders History of abnormal mammogram: Yes age 48's OB History Gravida0 Para0 Term0 Preterm0 AB0 Living0 SAB0 IAB0 Ectopic0 Multiple0 Live Births0 Sales Representative Health Insurance History LMP: Hysterectomy Age at Menarche: Age at First : Age at Menopause: Sales Representative Health Insurance History Comments: Sexual Activity: Not Currently; Male Contraception: Surgical PAST MEDICAL HISTORY Diagnosis Date Asthma (HCC) Cataracts, bilateral Foot fracture, left 2nd metatarsal GERD (gastroesophageal reflux disease) Hallux rigidus of left foot Osteoarthritis Osteoporosis Other and unspecified hyperlipidemia Rheumatoid arthritis(714.0) Sleep apnea PAST SURGICAL HISTORY Procedure Laterality Date COLONOSCOPY SCREENING 2017 EGD W/O BRSH SPEC VARICIES INJ 2020 NOSE SURGERY HX 03/09/2024 Basal cell carcinoma PAST SURGICAL HISTORY OF 04/03/1961 Left forearm PAST SURGICAL HISTORY OF 02/02/1996 Left elbow PAST SURGICAL HISTORY OF 2018 mos procedure upper lip PAST SURGICAL HISTORY OF upper teeth extractions POST-CATARACT LASER SURGERY Bilateral TOTAL ABDOMINAL HYSTERECT W/WO RMVL TUBE OVARY 09/02/1994 Hysterectomy, MIL FAMILY HISTORY Problem Relation Age of Onset Cancer Mother Lung Stroke Mother Due to Sick Sinus Syndrome Emphysema Mother Arthritis Father other (Liver Cirrhosis [Other]) Father Hypertension Sister COPD Sister Stroke Brother Arthritis Maternal Grandmother Asthma Maternal Grandfather No Known Problems Paternal Grandmother Pancreatic Cancer Paternal Grandfather SOCIAL HISTORY Social History Tobacco Use Smoking status: Former Current packs/day: 0.00 Types: Cigarettes Start date: 10/04/1970 Quit date: 10/04/1982 Years since quittin.7 Passive exposure: Never Smokeless tobacco: Never Tobacco comments: Pt smoked one pack every 6 months Vaping Use Vaping status: Never Used Substance Use Topics Alcohol use: Not Currently Drug use: Never REVIEW OF SYSTEMS Abdomen: No abdominal pain, nausea, vomiting, diarrhea, or constipation. No bloating, early satiety, indigestion, or increased flatulence. Bladder: No dysuria, gross hematuria, urinary frequency, urinary urgency, +slight incontinence Breast: nipples irritation and redness Allergies and current medication updated:Yes SENSITIVE EXAM: The sensitive examination was discussed with the Patient or Patient's Authorized Clerical Supervisor. As applicable, any other physician, advance practice provider, medical student, or other health professional student that will be observing or involved in the sensitive examination for educational or training purposes was discussed with the Patient or Authorized Clerical Supervisor. The Patient or Authorized Clerical Supervisor has agreed to proceed with the sensitive examination. (Sensitive examination includes inspection and/or palpation of the breasts, pelvis, prostate and anorectal regions). EXAM: BP 116/64 Ht 5' 4.567 (1.64m) Wt 121 lb 6.4 oz (55.1kg) BMI 20.47 kg/(m2). GENERAL: pleasant, female in no apparent distress HEENT: Normocephalic, atraumatic, mucus membranes moist, and no lesions DERMATOLOGY: Normal, without lesions, non-icteric, and non-hirsute BREAST: soft, non-tender, symmetric, no dominant mass, normal nipple-areolar complex, no lymphadenopathy, and no nipple discharge CHEST: Normal inspiratory effort ABDOMEN: soft, non-tender, and no masses PELVIC: external genitalia normal, normal Bartholin's glands, urethra, [place]'s glands, no vulvar lesions, physiologic discharge present, normal appearing perineal body and perianal region, cervix surgically absent BIMANUAL: no adnexal masses, non-tender, and uterus surgically absent RECTOVAGINAL: deferred. NEURO: alert and oriented x3,exam grossly non-focal EXTREMITIES: normal ASSESSMENT/PLAN: 1) Health maintenance: Pap/HPV screening no longer needed Mammogram up to date Nutrition, exercise and routine health maintenance exams reviewed. Calcium/Vitamin D supplementation information provided. Colon cancer screening: up to date with screening BMD: followed by PCP 2) Follow up one year or sooner as needed Recommended coconut oil/moisturizer for nipple irritation and change body soap. Gill Negron APRN.VP CLINICAL RESEARCH ALLERGIES DATE TYPE / CODE NAME / CODE REACTION SEVERITY SOURCE 06/18/2023 DRUG/[id number] 03(SNOMED CT) NITROFURANTOIN MONOHYD/M-CRYST OTHER: SEE C [facility] 06/18/2023 DRUG INGREDI/4195 38532(SNOMED CT) PHENAZOPYRIDINE OTHER: SEE C [facility] 06/17/2022 DRUG/[id number] 03(SNOMED CT) ALENDRONATE HIVES [facility] 06/17/2022 DRUG INGREDI/4195 17451(SNOMED CT) DOXYCYCLINE Vomiting [facility] 06/17/2022 DRUG INGREDI/4195 33925(SNOMED CT) ESTRADIOL RASH [facility] 05/29/2016 DRUG INGREDI/4195 41038(SNOMED CT) LEVOFLOXACIN RASH [facility] 04/01/2011 DRUG INGREDI/4195 83340(SNOMED CT) MELOXICAM GI UPSET [facility] 04/01/2011 Drug Class/719330 003(SNOMED CT) SULFA (SULFONAMIDE ANTIBIOTICS) HIVES [facility] 04/01/2011 DRUG INGREDI/4195 79330(SNOMED CT) DIAZEPAM HIVES [facility] ENCOUNTERS ADMIT/DISCHARGE ACCOUNT NUMBER ADMITTING ENCOUNTER CLASS LOC ATION SOURCE 06/21/2025/ 5 [id number] [facility] PAYERS ENCOUNTER GUARANTOR PAYER SUBSCRIBER SOURCE 06/21/2025 Primary Insurance:[employer] MEDICARE PPOPolicy Number: [id number] Date:[id number] Name:Everardo DENISE: [id number] [place] [address] [facility]
--- NOTE | 2025-07-03 12:50 | BI_ITS ---
EXAM: SCRN MAMM (CAD)W/MOISE BILAT DATE: 07/03/2025 CLINICAL HISTORY: F, Age 69 y/o , SCREENING Routine screening TECHNIQUE: Procedure Code: [id number] Modality: MG Procedure: SCRN MAMM (CAD)W/MOISE BILAT COMPARISON: No prior studies FINDINGS: TISSUE DENSITY: There are scattered areas of fibroglandular density. Bilateral Breast Mammographic Findings: No significant masses, calcifications or other abnormalities are identified. BI/SCRN MAMM (CAD)W/MOISE BILAT IMPRESSION: No suspicious mammographic findings OVERALL FINAL ASSESSMENT BI-RADS 1: NEGATIVE. RECOMMENDATION: Routine annual follow-up in 1 Year Additional Recommendation none A letter with findings and recommendations will be mailed to the patient. Reading Location: [id number]
--- NOTE | 2025-07-03 12:50 | BD_ITS ---
PROCEDURE: DEXA BONE DENSITY STUDY 07/03/2025 REASON FOR EXAM: F, age 69 y/o . Postmenopausal screening. TECHNIQUE: Procedure Code: BDDBD Modality: DX Procedure: DEXA BONE DENSITY STUDY COMPARISON: Multiple previous studies dating back to 2008, the most recent from 2022 FINDINGS: BMD and T-SCORES Lumbar spine: 0.847 g/cm2, T-score -1.9 Levels: L1 through L4 Change from prior: Increase of 0.3%. Left femoral neck: 0.716 g/cm2, T-score -1.2 Femoral neck comparison data not recommended for monitoring change. Prior T-score Left total hip: 0.846 g/cm2, T-score -0.8 Change from prior: Decrease of 1.3%. Right femoral neck: 0.727 g/cm2, T-score -1.1 Femoral neck comparison data not recommended for monitoring change. Prior T-score Right total hip: 0.856 g/cm2, T-score -0.7 Change from prior: . The World Health Organization has defined the following categories based on bone density: Normal bone density: T-score equal to or greater than -1.0 Osteopenia: T-score between -1.0 and -2.5 Osteoporosis: T-score equal to or less than -2.5 FRAX (or Comparable) Fracture Risk Assessment: 10 Year Probability of Fracture: Major Osteoporotic Fracture: 38% Hip Fracture: 13% (Note: FRAX is not to be reported in setting of normal range bone density, osteoporosis on DEXA, known history of osteoporosis, prior osteoporotic hip or vertebral fracture, or for any patient undergoing pharmacological treatment for bone loss.) The National Osteoporosis Foundation (NOF) recommends pharmacological treatment for patients with a FRAX 10-year risk of 3% or higher for a hip fracture, or 20% or higher for a major osteoporotic fracture, to prevent osteoporosis and reduce fracture risk. The patient does not meet the pharmacological treatment recommendations for prevention of osteoporosis. BD/Dexa Bone Density Study IMPRESSION: OSTEOPENIA. Recommend follow-up as clinically warranted. Reading Location: [id number]
== END | disposition home or self-care (01) ==
LOC: OPBD 12:48
PROVIDERS: PCP Family Medicine; Referring Provider Family Medicine; Visit Provider Family Medicine
DX: Z12.31 Encounter for screening mammogram for malignant neoplasm of breast (principal); Z78.0 Asymptomatic menopausal state; N95.9 Unspecified menopausal and perimenopausal disorder
CPT/HCPCS: 77063; 77067; 77080